=== PATIENT | male | born 2000 | race Caucasian/White ===

== ENCOUNTER 2022-06-03 15:43 | Emergency (ER) | payer OTHER, SELFPAY ==
[2022-06-03 15:44] VITALS: PULSE 79; RESP 18; TEMP 36.4; O2SAT 99; BMI 27.9
[2022-06-03 15:46] VITALS: BP 137/86
--- NOTE | 2022-06-03 15:49 | NURSING ---
NO OLD EKGS
--- NOTE | 2022-06-03 15:53 | CT_ITS ---
STUDY: CTA CHEST REASON FOR EXAM: Male, 22 years old. Recent travel history to [facility]. Worsening chest pain for several weeks. Question pulmonary embolus. RADIATION DOSAGE (If Supplied By Facility): CTDIvol = ( 15.65 ) mGy, DLP = ( 432.98 ) mGycm TECHNIQUE: The examination was performed with the intravenous administration of IV 100mL Isovue-370. Post-processing of the angiographic images was performed, with multiplanar reformation and 3D reconstruction. Individualized dose optimization techniques were used for this CT. COMPARISON: None. FINDINGS: Normal enhancement of the main pulmonary artery and right and left pulmonary arteries. Normal enhancement of the bilateral peripheral pulmonary arteries. There is no demonstrated pulmonary embolism. Normal thoracic aorta and visualized great vessels. There is no demonstrated aortic dissection. Normal heart and pericardium. Normal mediastinum. Normal hilar regions. Normal visualized trachea and bronchi. The lungs are well expanded. Normal pulmonary parenchyma. Normal pleura. Normal chest wall structures. Normal osseous structures. Normal visualized upper abdomen. CT/CTA Chest W/WO Contrast IMPRESSION: Normal CTA chest examination, without a demonstrated pulmonary embolism or arterial dissection. Electronically Signed: Peter Arriola DO at 17:32 EST ,
--- NOTE | 2022-06-03 15:53 | EKG12_ITS ---
Test Reason : Blood Pressure : / mmHG Vent. Rate : 071 BPM Atrial Rate : 071 BPM P-R Int : 154 ms QRS Dur : 086 ms QT Int : 362 ms P-R-T Axes : -20 095 021 degrees QTc Int : 393 ms Normal sinus rhythm Rightward axis Borderline ECG Confirmed by AMARILIS WAGGONER, GRIISH ([id number]), video tape editor MIRTHA FARRIS ([id number]) on 06/05/2022 11:16:35 AM Referred By: Confirmed By:GIRISH OLMOS MD
--- NOTE | 2022-06-03 15:54 | EDS_ITS ---
HPI History of Present Illness Chief Complaint: Chest Pain Informant: patient Narrative Narrative: This patient has been getting intermittent sharp pain mostly on the left anterior aspect of his chest but occasionally on the right. It tends to occur more often in the evening but can occur multiple times to the day. It is relatively short-lived. He occasionally feels some palpitations or racing heart around that time. He states occasionally he feels a little lightheaded short of breath with it but not consistently. In between the episodes he feels well. There is nothing that he can do to bring it on or stop it. He has no leg swelling. He has no cough. He has no fevers. No nausea vomiting. Patient does have family history of blood clots. His father had a PE and its uncertain why. Patient also just got back from a flight from [place] about 3 w eeks ago. He was not having symptoms before he returned. He has no known chronic medical conditions No known medications No known allergies No surgeries Non-smoker lives independently. PFSH [facility] Home Medications NK 06/03/22 [History Last Taken Unknown] Allergy/AdvReac Type Severity Reaction Status Date / Time No Known Allergies Allergy Verified 03/19/17 17:24 Social History Smoking Status: Never smoker ROS ROS ED Constitutional Constitutional ED: Denies chills or fever(s) Eyes Eyes: Denies change in vision ENT ENT ED: Denies rhinorrhea or sore throat Cardiovascular Cardiovascular: Reports as per HPI, chest pain and palpitations Respiratory/Chest Respiratory/Chest: Denies cough or sputum Gastrointestinal Gastrointestinal: Denies nausea or vomiting Genitourinary Genitourinary ED: Denies hematuria Musculoskeletal Musculoskeletal: Denies myalgias Integumentary Denies rash Neurologic Neurologic: Denies headache(s) Endocrine Endocrinology: Denies polydipsia or polyuria Hematologic/Lymphatic Hematologic/Lymphatic: Denies easy bleeding or easy bruising Allergic/Immunologic Allergic/Immunologic ED: Denies urticaria EXAM Physical Exam Const Vital Signs: 06/03/22 15:44 06/03/22 15:46 06/03/22 15:46 Temperature 97.5 F L Temperature Source Temporal Pulse Rate 79 Respiratory Rate 18 Respiratory Effort Normal Blood Pressure 137/86 H Blood Pressure Mean 103 Pulse Ox 99 Oxygen Delivery Method Room Air Positive well nourished Constitutional Narrative: Patient sitting comfortably in bed. Carries on normal conversation. No acute distress. No obvious dyspnea. Vitals are normal on the monitor including pulse with about 70 and O2 sat of 99 to 100% on room air showing no hypoxia. General Appearance ED: NAD; Negative for pallor HEENT Reports moist mucous membranes Eyes General Eye ED: Negative for pale conjunctiva or scleral icterus Neck no JVD Chest Wall inspection of chest normal and palpation of chest normal Chest Narrative: No reproducible chest tenderness Resp normal respiratory effort Effort and Inspection: Negative for pain with movement Auscultation: Negative for rales, rhonchi or wheezes Cardio regular rate, regular rhythm and no murmurs Rhythm: Negative for abnormal rhythm GI normal to inspection, nondistended, normoactive bowel sounds and soft to palpation Back/Spine no CVA tenderness Extremity normal to inspection General Extremety ED: Negative for edema, pulses abnormal or tenderness General Extremity: Negative for edema or pulses abnormal Neuro Sensorium / Orientation: awake and alert Psych mental status grossly normal Skin no rashes or lesions noted General Skin Exam: Negative for jaundice or pallor MDM MDM MDM Narrative Medical decision making narrative: Patient's heart rate and oxygen level are normal. But he has been having sharp chest pain with family history of pulmonary embolus and recent long plane flight from [place]. Although his vitals would lean him toward lower risk his overall risk profile was more moderate and therefore a CT a will be done rather than D- dimer. My independent interpretation of the CTA shows no acute process. However, we did wait for final reading by radiology due to the complexity of this exam. This also shows no pulmonary embolism, dissection or acute process. Patient's white count shows mildly low hemoglobin which could be from mild dehydration or chronic but is not the source of his symptoms. White count is normal. Electrolytes are normal. Troponin is unmeasurable. I think the patient is safe for discharge. He does do a lot of weight lifting and he may have irritated this. But there is no sign of acute cardiopulmonary disease that requires admission or specific treatment at this time. Lab Data Labs: Laboratory Results - last 24 hr 06/03/22 06/03/22 15:43 15:43 WBC 5.1 RBC 5.28 Hgb 16.7 H Hct 47.7 MCV 90.3 MCH 31.6 MCHC 35.0 RDW Std Deviation 38.7 RDW Coeff of Jh 11.8 Plt Count 296 MPV 9.2 Immature Gran % (Auto) 0.000 Neut % (Auto) 42.0 L Lymph % (Auto) 41.3 H [place] % (Auto) 11.6 H Eos % (Auto) 4.3 Baso % (Auto) 0.8 Absolute Neuts (auto) 2.1 Absolute Lymphs (auto) 2.10 Nucleated RBC % 0 Sodium 140 Potassium 4.0 Chloride 107 Carbon Dioxide 30.0 Anion Gap 3 L BUN 12 Creatinine 1.07 Estim Creat Clear Calc 116.84 Est GFR (MDRD) Af Amer 109 Est GFR (MDRD) Non-Af 90 BUN/Creatinine Ratio 11.2 Glucose 96 Calcium 9.0 Troponin I High Sens < 3 L Radiography Diagnostic Testing: Clinical Impression(s) from Imaging Studies Chest CTA 06/03/22 15:53 IMPRESSION: Normal CTA chest examination, without a demonstrated pulmonary embolism or arterial dissection. Electronically Signed: Peter Arriola DO at 17:32 EST Reading Location ID and State: [address] [place] [address] Tel [phone], Service support , EKG Initial EKG: Comments: My independent interpretation of EKG done for chest pain is n ormal sinus rhythm with overall rate of 71. No ectopy. Mild early repol and rightward axis but no sign of acute ST elevation or depression. CO interval, QRS duration and QTc are normal. A prior EKG was looked for on her system but not found. Discharge Plan Triage Chief Complaint: Chest Pain ED Provider: River Guerrero Dx/Rx/DC Orders Clinical Impression: Chest pain Instructions: ED Chest Pain, Uncertain Cause Prescriptions: No Action NK Primary Care Provider: Care Physician,No Primary Referrals: Carmina Lorenz MD [Med Staff - License Inspector] - 3-5 Days if not improving Care Physician,No Primary [Primary Care Provider] - Disposition Disposition: Home, Self Care
[2022-06-03 16:06] LABS: Absolute Neutrophil Count 2.1 X10^3/uL (2.0-7.7); Basophil# 0.04 X10^3/uL; Basophil% 0.8 % (0-1); Eosinophil# 0.22 X10^3/uL; Eosinophils% 4.3 % (0-5); Hematocrit 47.7 % (40-54); Hemoglobin 16.7 g/dL (13.0-16.5); Lymphocyte % 41.3 % (19-41); Mean Corpuscular Hgb 31.6 pg (27.0-32.0); Mean Corpuscular Volume 90.3 fL (80-94); Mean Platelet Vol. 9.2 fl (6.2-12.0); Monocyte# 0.59 X10^3/uL; Monocyte% 11.6 % (0-10); NRBC Flagged by Analyzer 0 % (0-5); Neutrophil # 2.13 X10^3/uL (2.7-7.7); Platelet Count 296 K/mm3 (150-450); RBC Distribution Width CV 11.8 % (11.6-14.6); RBC Distribution Width SD 38.7 fl (35.1-43.9); Red Blood Count 5.28 M/mm3 (4.6-6.2); White Blood Count 5.1 K/mm3 (4.4-11.0)
[2022-06-03 16:27] LABS: Anion Gap 3 (5-15); BUN 12 mg/dL (7-18); BUN/Creat Ratio 11.2 RATIO (10-20); Chloride 107 mmol/L (98-107); Creatinine, Serum 1.07 mg/dL (0.70-1.30); EST Glomerular Filtration Rate 90 mL/min (>60); Est Glom Filt Rate - Afr Amer 109 mL/min (>60); Estimated Creatinine Clearance 116.84 ml/min; Glucose 96 mg/dL (74-106); Sodium Level 140 mmol/L (136-145); Troponin-I HS < 3 pg/mL (3.0-78.0)
[2022-06-03 17:47] VITALS: BP 128/87; PULSE 76; RESP 20; O2SAT 97
== END 2022-06-03 17:50 | disposition home or self-care (01) ==
PROVIDERS: Emergency Provider Emergency Medicine; Visit Provider Emergency Medicine
DX: R07.9 Chest pain, unspecified (principal); R00.2 Palpitations
CPT/HCPCS: 71275; 80048; 84484; 85025; 93005; 96360; 99284; J7030; Q9967

== ENCOUNTER 2022-07-04 03:05 | Emergency (ER) | payer OTHER, SELFPAY ==
[2022-07-04 03:06] VITALS: BP 131/88; PULSE 97; RESP 16; TEMP 36.1; O2SAT 98; BMI 26.8
[2022-07-04] MEDS: Ondansetron 4 MG/2 ML Vial IV (03:36)
[2022-07-04] MEDS: 0.9% Normal Saline 1,000 ML 1000 ML IV (03:36)
[2022-07-04 03:43] LABS: Absolute Lymphocyte Count 0.49 X10^3/uL (0.83-4.51); Absolute Neutrophil Count 6.7 X10^3/uL (2.0-7.7); Basophil# 0.01 X10^3/uL; Basophil% 0.1 % (0-1); Eosinophil# 0.04 X10^3/uL; Eosinophils% 0.5 % (0-5); Hematocrit 47.6 % (40-54); Hemoglobin 16.7 g/dL (13.0-16.5); Lymphocyte # 0.49 X10^3/ul (0.83-4.51); Lymphocyte % 6.1 % (19-41); Mean Corp Hgb Conc 35.1 g/dL (32-36); Mean Corpuscular Hgb 31.7 pg (27.0-32.0); Mean Corpuscular Volume 90.3 fL (80-94); Mean Platelet Vol. 8.8 fl (6.2-12.0); Monocyte# 0.81 X10^3/uL; NRBC Flagged by Analyzer 0 % (0-5); Neutrophil # 6.67 X10^3/uL (2.7-7.7); Neutrophil % 82.8 % (47-70); POSITIVE DIFFERENTIAL YES; Platelet Count 239 K/mm3 (150-450); RBC Distribution Width CV 11.8 % (11.6-14.6); RBC Distribution Width SD 38.5 fl (35.1-43.9); Red Blood Count 5.27 M/mm3 (4.6-6.2); White Blood Count 8.1 K/mm3 (4.4-11.0)
[2022-07-04 04:02] LABS: ALB/GLOB Ratio 1.2 RATIO (0.9-2.4); AST(SGOT) 23 U/L (15-37); Alanine Aminotransfer ALT/SGPT 40 U/L (16-61); Albumin, Serum 4.1 g/dL (3.2-5.0); Alkaline Phosphatase 73 U/L (45-117); Anion Gap 7 (5-15); BUN 16 mg/dL (7-18); BUN/Creat Ratio 13.6 RATIO (10-20); Chloride 104 mmol/L (98-107); Creatinine, Serum 1.18 mg/dL (0.70-1.30); EST Glomerular Filtration Rate 80 mL/min (>60); Est Glom Filt Rate - Afr Amer 97 mL/min (>60); Estimated Creatinine Clearance 105.95 ml/min; Globulin 3.5 g/dL (2.2-4.2); Glucose 109 mg/dL (74-106); Lipase 72 U/L (73-393); Potassium 3.7 mmol/L (3.5-5.1); Protein, Total 7.6 g/dL (6.4-8.2); Sodium Level 138 mmol/L (136-145)
[2022-07-04 04:16] LABS: Differential Indicated SCAN CRITERIA MET
--- NOTE | 2022-07-04 04:18 | EDS_ITS ---
HPI History of Present Illness Chief Complaint: Nausea/Vomiting/Diarrhea Informant: patient Narrative Narrative: Patient is a 22-year-old male who denies any significant past medical history presenting with nausea, vomiting, diarrhea and abdominal pain. Patient states that symptoms started about 9 hours prior to arrival. Denies any known sick contacts. Denies any black or blood in his stool. Did not take anything for symptoms prior to arrival. States that he had a similar episode about a month ago but was not as severe. [place] lightheaded with standing which is why he decided come to the ER. His father is at the bedside. Denies any history of any abdominal surgeries. Denies any radiation of the pain. States the pain in his abdomen is sharp and in his lower abdomen on both sides. No other complaints at this time. Denies any history of C. difficile and denies any recent antibiotic use. Reports earlier in the evening he felt hot/feverish and his head was throbbing. This is since resolved. He did not take his temperature. PFSH PFSH Home Medications dicyclomine 20 mg tablet 20 mg PO TID PRN abdominal discomfort #20 tabs 07/04/22 [Rx Last Taken Unknown] ondansetron 4 mg disintegrating tablet 4 mg PO Q6H PRN nausea and vomiting #14 tabs 07/04/22 [Rx Last Taken Unknown] Allergy/AdvReac Type Severity Reaction Status Date / Time No Known Allergies Allergy Verified 07/04/22 03:07 Social History Smoking Status: Never smoker ROS ROS ED Constitutional Constitutional ED: Reports chills, fever(s) and other Details: lightheaded Eyes Eyes: Denies change in vision ENT ENT ED: Denies rhinorrhea or sore throat Cardiovascular Cardiovascular: Denies chest pain Respiratory/Chest Respiratory/Chest: Denies cough Gastrointestinal Gastrointestinal: Reports abdominal pain, diarrhea, nausea and vomiting; Denies melena Genitourinary Genitourinary ED: Denies dysuria or hematuria Musculoskeletal Musculoskeletal: Denies arthralgias or myalgias Integumentary Denies rash Neurologic Neurologic: Denies headache(s) or weakness EXAM Physical Exam Const Vital Signs: 07/04/22 03:06 Temperature 97 F L Temperature Source Temporal Pulse Rate 97 Respiratory Rate 16 Blood Pressure 131/88 H Blood Pressure Mean 102 Pulse Ox 98 Oxygen Delivery Method Room Air Positive well nourished and well developed General Appearance ED: well developed and NAD HEENT Reports dry mucous membranes Mouth ED: Yes dry mucous membranes Mouth: dry mucous membranes Eyes PERRL and EOMs intact bilaterally Neck supple and no JVD Chest Wall inspection of chest normal Resp normal respiratory effort and clear to auscultation bilaterally Cardio regular rate, regular rhythm and no murmurs GI non-distended Auscultation: normoactive bowel sounds Palpation: soft and tender LLQ and RLQ; Negative for guarding or rebound tenderness present Back/Spine no CVA tenderness Extremity normal to inspection General Extremety ED: Negative for edema General Extremity: Negative for edema Neuro oriented x3 Sensorium / Orientation: alert Motor Exam: Negative for general weakness Skin no rashes or lesions noted and no wounds MDM MDM MDM Narrative Medical decision making narrative: Patient evaluated for lower abdominal pain, diarrhea and nausea/vomiting. He appears nontoxic in no acute distress. Reports a fever but he is afebrile in the ER. He does appear dehydrated. Differential includes but is not limited to gastroenteritis, colitis, diverticulitis, appendicitis, dehydration, pancreatitis and electrolyte abnormality. He is given a total of 2 L of IV fluid as well as Zofran initially. He continues to have pain he is then given a dose of Pepcid and Toradol. His nausea improved while in the emergency room. He still continues to have crampy/sharp lower abdominal pain and he is given dose of Bentyl. CBC shows a mildly elevated hemoglobin I suspect he is hemoconcentrated from dehydration. CMP largely unremarkable. Lipase is normal. CT of the abdomen and pelvis added on as he is having pain in the lower abdomen and this is negative for any acute process. Again I suspect more than likely this is a viral illness. There is a high community prevalence of norovirus which could be causing his symptoms. Patient will be discharged home with a prescription for Bentyl and Zofran. He is comfortable with this. He is given return precautions. Patient and father verbalized agreement understand with this plan. Lab Data Attestation: I reviewed the patient's lab results. Labs: Laboratory Results - last 24 hr 07/04/22 07/04/22 03:35 03:35 WBC 8.1 RBC 5.27 Hgb 16.7 H Hct 47.6 MCV 90.3 MCH 31.7 MCHC 35.1 RDW Std Deviation 38.5 RDW Coeff of Jh 11.8 Plt Count 239 MPV 8.8 Immature Gran % (Auto) 0.500 Neut % (Auto) 82.8 H Lymph % (Auto) 6.1 L [place] % (Auto) 10.0 Eos % (Auto) 0.5 Baso % (Auto) 0.1 Absolute Neuts (auto) 6.7 Absolute Lymphs (auto) 0.49 L Nucleated RBC % 0 Differential Comment SCANNED Sodium 138 Potassium 3.7 Chloride 104 Carbon Dioxide 27.0 Anion Gap 7 BUN 16 Creatinine 1.18 Estim Creat Clear Calc 105.95 Est GFR (MDRD) Af Amer 97 Est GFR (MDRD) Non-Af 80 BUN/Creatinine Ratio 13.6 Glucose 109 H Calcium 9.0 Total Bilirubin 0.90 AST 23 ALT 40 Alkaline Phosphatase 73 Total Protein 7.6 Albumin 4.1 Globulin 3.5 Albumin/Globulin Ratio 1.2 Lipase 72 L Radiography Diagnostic Testing: Clinical Impression(s) from Imaging Studies Abdomen/Pelvis CT 07/04/22 04:56 IMPRESSION: Negative CT of the abdomen and pelvis with contrast. Electronically Signed: Manny Duncan MD at 5:53 EST Reading Location ID and State: [facility] / [place] Tel , Service support , Discharge Plan Triage Chief Complaint: Nausea/Vomiting/Diarrhea ED Provider: Ade Naranjo Dx/Rx/DC Orders Clinical Impression: Nausea vomiting and diarrhea, Abdominal pain, lower Instructions: ED Gastroenteritis, Viral (Adult) Prescriptions: New ondansetron 4 mg tablet,disintegrating 4 mg PO Q6H PRN (Reason: nausea and vomiting) Qty: 14 0RF dicyclomine 20 mg tablet 20 mg PO TID PRN (Reason: abdominal discomfort) Qty: 20 0RF Primary Care Provider: Care Physician,No Primary Referrals: Rodrigo Veliz MD [Med Staff - Insurance Professional] - As Needed Care Physician,No Primary [Primary Care Provider] - Activity Restrictions/Additional Instructions: Continue to drink fluids. If this is Viral it should be self-limiting. If you have a progression or worsening of symptoms, develop blood in your stool or further concerns please return to the emergency room. Disposition Disposition: Home, Self Care
[2022-07-04 04:46] LABS: Differential Comment SCANNED
[2022-07-04] MEDS: Famotidine 200 MG/20 ML MDV 20 MG in 0.9% Normal Saline (Pres. free 8 ML 300 MG IV (04:51)
[2022-07-04] MEDS: Ketorolac 15 MG/ML Vial IV (04:55)
--- NOTE | 2022-07-04 04:56 | CT_ITS ---
INDICATION: lower abd pain, diarrhea EXAMINATION: CT ABDOMEN AND PELVIS WITH CONTRAST - CT Abdomen And Pelvis W/ Contrast Injection TECHNIQUE: Helically acquired images were obtained of the abdomen and pelvis following IV contrast. A radiation dose optimization technique was used for this scan. IV Contrast dosage and agent: Oral contrast: None. COMPARISON: None. FINDINGS: LOWER CHEST: Lung bases are clear. No cardiomegaly or pericardial effusion. LIVER: Homogeneous. No focal mass. GALLBLADDER AND BILIARY TREE: No calcified gallstones. No gallbladder distension or wall edema. No intra- or extrahepatic biliary ductal dilation. PANCREAS: No focal cystic or solid mass. SPLEEN: Normal size without focal cystic or solid mass. ADRENAL GLANDS: No nodules. KIDNEYS AND URETERS: Normal renal size and position. No hydronephrosis. PERITONEUM: No ascites or free air. No other fluid collection. BOWEL: No evidence of acute appendicitis. No stomach or bowel distension. No focal inflammatory change. LYMPH NODES: No enlarged mesenteric or retroperitoneal lymph nodes. VESSELS: Aorta is non-dilated. URINARY BLADDER: Unremarkable. REPRODUCTIVE ORGANS: No pelvic masses. ABDOMINAL WALL: No discrete abdominal or pelvic wall hernia. BONES: No lytic or blastic abnormality. CT/Abdomen/Pelvis W IV Cont ONLY IMPRESSION: Negative CT of the abdomen and pelvis with contrast. Electronically Signed: Manny Duncan MD at 5:53 EST ,
[2022-07-04] MEDS: 0.9% Normal Saline 1,000 ML 999 ML IV (05:15)
[2022-07-04] MEDS: Dicyclomine 10 MG Capsule 20 MG PO (06:00)
== END 2022-07-04 06:37 | disposition home or self-care (01) ==
PROVIDERS: Emergency Provider Emergency Medicine; Visit Provider Emergency Medicine
DX: R11.2 Nausea with vomiting, unspecified (principal); R10.30 Lower abdominal pain, unspecified; R19.7 Diarrhea, unspecified
CPT/HCPCS: 74177; 80053; 83690; 85025; 96361; 96374; 96375; 99284; J7030; J2405; J3490